=== PATIENT | female | born 1930 | race Caucasian/White ===

== ENCOUNTER 2016-12-25 12:00 | Emergency (ER) | payer OTHER, BC ==
[2016-12-25 12:17] VITALS: BP 134/65; PULSE 104; TEMP 99; BMI 20.3
[2016-12-25] MEDS ORDERED: traMADol HCL 50 MG TABLET PO ONE (12:48)
--- NOTE | 2016-12-25 12:50 | PDOC ---
History of Present Illness - General Chief Complaint: Pain Stated Complaint: LT THIGH PAIN Time Seen by Provider: 12/25/16 12:31 History Source: Patient, Family - History of Present Illness Occurred: reports: other Severity: reports: severe Pain Location: reports: lower extremity Past History - Past Medical History Allergies/Adverse Reactions: Allergies Allergy/AdvReac Type Severity Reaction Status Date / Time bee pollen Allergy Unknown Verified 12/25/16 12:13 POLLEN Allergy Unknown Uncoded 12/25/16 12:13 Home Medications: Ambulatory Orders Micardis Hct 40-12.5 mg Tablet 40 mg PO DAILY 01/05/14 Cephalexin [Keflex] 500 mg PO BID #13 capsule 12/25/16 Tramadol HCl 50 mg PO Q6H #20 tablet MDD 200 mg 12/25/16 HTN: Yes Other medical history: OSTEOPOROSIS, CELIAC DISEASE - Surgical History Abdominal Surgery: Yes (COLECTOMY W.REVERSAL) Appendectomy: Yes - Psycho/Social/Smoking Cessation Hx Suicidal Ideation: No Smoking History: Never smoked Hx Alcohol Use: No Drug/Substance Use Hx: No Substance Use Type: None Hx Substance Use Treatment: No Review of Systems - Review of Systems Constitutional: No: Chills, Fever ABD/GI: No: Nausea, Vomiting, Abdominal cramping : Yes: Dysuria, Frequency. No: Flank Pain, Hematuria *Physical Exam - Vital Signs Last Vital Signs Temp Pulse Resp BP Pulse Ox 99 F 104 H 19 134/65 97 12/25/16 12:13 12/25/16 12:13 12/25/16 12:13 12/25/16 12:13 12/25/16 12:13 - Physical Exam General Appearance: Yes: Appropriately Dressed. No: Apparent Distress HEENT: positive: Normal Voice Neck: positive: Supple Respiratory/Chest: negative: Respiratory Distress Gastrointestinal/Abdominal: positive: Soft. negative: Tender Musculoskeletal: positive: Normal Inspection. negative: Vertebral Tenderness Extremity: positive: Normal Inspection Integumentary: positive: Dry, Warm. negative: Rash Neurologic: positive: Fully Oriented, Alert, Normal Mood/Affect ED Treatment Course - RADIOLOGY Radiology Studies Ordered: Category Date Time Status HIP & PELVIS-LEFT [RAD] Stat Radiology 12/25/16 12:48 Ordered Medical Decision Making - Medical Decision Making 12/25/16 12:50 86 yo F, history of celiac disease, osteoporosis, on meds, hypertension, here with left groin pain. pain. Patient reports that she developed a mild ache to left groin area 4 days ago. States she ignored it and thought it would go away but pain has gotten worse and now finds it very difficult to bear weight on the left side. States prior to pain, she was more active in preparing for the December 23 holiday but denies any trauma/fall. No back pain. Taking aleve w/ no improvement. Patient also reporting some burning with urination and urinary frequency x several days. No hematuria, nausea, vomiting, fever or chills. See exam Atraumatic L groin pain Pain located to proximal aspect of medial L thigh on exam, worse w/ movement/ bearing weight in ED H/o osteoporosis -XR -pain control Dysuria No flank pain, f/c/n/v -ua/ucx 12/25/16 12:59 12/25/16 13:37 XR neg for acute pathology. Pt reports that pain is better but still hurts to walk. Further pain control and/or OBs overnight offered to pt who declines at this time. Prefers to do trial of pain control and rest at home and will return for persistent/worsening pain per pt. Cane given. Also has walker at home. +uti , ucx sent. Will tx, no prior sensitivities on file. Pt has upcoming appt w/ PMD. Stable for discharge in care of son at this time 12/25/16 13:43 12/25/16 13:49 12/25/16 13:51 *DC/Admit/Observation/Transfer Diagnosis at time of Disposition: Left groin pain UTI (urinary tract infection) Qualifiers: Urinary tract infection type: acute cystitis Hematuria presence: without hematuria Qualified Code(s): N30.00 - Acute cystitis without hematuria - Discharge Dispostion Disposition: HOME Condition at time of disposition: Improved - Prescriptions Prescriptions: Cephalexin [Keflex] 500 mg PO BID #13 capsule Tramadol HCl 50 mg PO Q6H #20 tablet MDD 200 mg - Referrals Referrals: Leslie Be MD [Primary Care Provider] - - Patient Instructions Printed Discharge Instructions: Urinary Tract Infection, DI for Groin Strain Additional Instructions: Take medications as directed and return for persistent or worsening of symptoms Otherwise, follow up with your PMD
[2016-12-25] MEDS ORDERED: traMADol HCL 50 MG TABLET ONE (12:54)
[2016-12-25 13:22] LABS: PH,URINE 6.5 (5.0-8.0); URINE APPEARANCE CLEAR; URINE BILIRUBIN NEGATIVE (NEGATIVE); URINE COLOR LT. YELLOW; URINE GLUCOSE (UA) NEGATIVE (NEGATIVE); URINE KETONE 1+ (NEGATIVE); URINE PROTEIN TRACE (NEGATIVE); URINE UROBILINOGEN 0.2 E.U/dl E.U./dl (0.2-1.0)
[2016-12-25 13:26] LABS: URINE BLOOD 2+ (NEGATIVE)
[2016-12-25 13:27] LABS: URINE LEUK ESTERASE 2+ (NEGATIVE); URINE NITRITE POSITIVE (NEGATIVE)
[2016-12-25] MEDS ORDERED: CEPHALEXIN MONOHYDRATE 500 MG CAPSULE (UD) PO ONE (13:31)
[2016-12-25] MEDS ORDERED: CEPHALEXIN MONOHYDRATE 500 MG CAPSULE (UD) ONE (13:33)
[2016-12-25 14:15] LABS: URINE BACTERIA RARE /hpf (NONE SEEN); URINE MUCUS FEW; URINE RBC 2 /hpf (0-3); URINE WBC 101 /hpf (3-5)
== END 2016-12-25 14:03 | disposition home or self-care (01) ==
LOC: JERFT 12:00
DX: N30.00 Acute cystitis without hematuria (principal); I10 Essential (primary) hypertension; M81.0 Age-related osteoporosis without current pathological fracture; Z87.19 Personal history of other diseases of the digestive system
CPT/HCPCS: 73523-TC; 81003; 81015; 87086; 87186; 99281-25

== ENCOUNTER 2019-02-15 11:19 | Inpatient (IN) | payer OTHER, BC ==
--- NOTE | 2019-02-15 11:51 | PDOC ---
History of Present Illness - General Chief Complaint: Injury Stated Complaint: FALL Time Seen by Provider: 02/15/19 11:31 - History of Present Illness Initial Comments: 02/15/19 12:04 88 year old woman with history of HTN, osteoporosis, remote colon ca s/p resection, colostomy and reversal who presents after mechanical fall while in a grocery store parking lot. The patient was walking and did not recognize the speed bump and fell onto her L side. She complains of L elbow pain and L sided rib pain. She denies chest pain or shortness of breath. She denies any head trauma, loc. She does not take anticoagulants. She was able to ambulate after the fall with assistance. She denies any other complaints. PCP: [place] JACKSON GENERAL/CONSTITUTIONAL: No fever or chills. No weakness. HEAD, EYES, EARS, NOSE AND THROAT: No change in vision. No ear pain or discharge. No sore throat. CARDIOVASCULAR: No chest pain or shortness of breath RESPIRATORY: No cough, wheezing, or hemoptysis. GASTROINTESTINAL: No nausea, vomiting, diarrhea or constipation. GENITOURINARY: No dysuria, frequency, or change in urination. MUSCULOSKELETAL: See HPI SKIN: No rash NEUROLOGIC: No headache, vertigo, loss of consciousness, or change in strength/ sensation. PE GENERAL: Awake, alert, and fully oriented, in no acute distress HEAD: No signs of trauma, normocephalic, atraumatic EYES: EOMI, sclera anicteric, conjunctiva clear ENT: oropharynx clear without exudates. Moist mucosa NECK: Normal ROM, supple LUNGS: No distress, speaks full sentences, clear to auscultation bilaterally HEART: Regular rate and rhythm, normal S1 and S2, no murmurs, rubs or gallops, peripheral pulses normal and equal bilaterally. CHEST: rib tenderness on L side ABDOMEN: Soft, nontender, normoactive bowel sounds. No guarding, no rebound. No masses EXTREMITIES : + L elbow with hematoma, flexion limited 2/2 swelling and pain, FROM of L shoulder NEUROLOGICAL: Cranial nerves II through XII grossly intact. Normal speech, normal gait, no focal sensorimotor deficits SKIN: Warm, Dry, normal turgor, no rashes or lesions noted MDM DDX including but not limited to: r/o elbow, arm, hip fx, r/o intracranial bleed vs cervical spine fx W/U: - XR of L arm, pelvis, chest, Head CT, cervical CT TX: - tylenol ED Course: XR: L acute pubic rami fx, L olecranon fx Orthopedics Dr. Garcia contacted, rec posterior splint and admission Plan for admission Yana Resendez, PGY2 Emergency Medicine Past History - Past Medical History Allergies/Adverse Reactions: Allergies Allergy/AdvReac Type Severity Reaction Status Date / Time bee pollen Allergy Unknown Verified 02/15/19 11:29 POLLEN Allergy Unknown Uncoded 02/15/19 11:29 Home Medications: Ambulatory Orders Micardis Hct 40-12.5 mg Tablet 40 mg PO DAILY 01/05/14 Cephalexin [Keflex] 500 mg PO BID #13 capsule 12/25/16 Tramadol HCl 50 mg PO Q6H #20 tablet MDD 200 mg 12/25/16 COPD: No HTN: Yes Other medical history: osteoporosis - Surgical History Abdominal Surgery: Yes (COLECTOMY W.REVERSAL) Appendectomy: Yes - Suicide/Smoking/Psychosocial Hx Smoking History: Never smoked Hx Alcohol Use: No Drug/Substance Use Hx: No Substance Use Type: None Hx Substance Use Treatment: No *Physical Exam - Vital Signs Last Vital Signs Temp Pulse Resp BP Pulse Ox 98.6 F 98 H 18 173/82 H 98 02/15/19 11:29 02/15/19 11:29 02/15/19 11:29 02/15/19 11:29 02/15/19 11:29 *DC/Admit/Observation/Transfer Diagnosis at time of Disposition: Pubic ramus fracture, Olecranon fracture - Discharge Dispostion Condition at time of disposition: Stable Decision to Admit order: Yes - Referrals Referrals: Leslie Be MD [Primary Care Provider] - - Patient Instructions - Post Discharge Activity
[2019-02-15] MEDS ORDERED: ACETAMINOPHEN 325 MG TABLET (FP) PO ONE (11:57)
[2019-02-15] MEDS ORDERED: ACETAMINOPHEN 325 MG TABLET (FP) ONE (12:12)
--- NOTE | 2019-02-15 12:18 | PDOC ---
*Physical Exam - Vital Signs Last Vital Signs Temp Pulse Resp BP Pulse Ox 98.6 F 98 H 18 173/82 H 98 02/15/19 11:29 02/15/19 11:29 02/15/19 11:29 02/15/19 11:29 02/15/19 11:29 ED Treatment Course - LABORATORY CBC & Chemistry Diagram: 02/15/19 16:50 02/15/19 16:50 Medical Decision Making - Medical Decision Making 02/15/19 12:12 88 year female with a PMH of HTN and -- presents to our ED s/p mechanical fall. States she was walking and tripped over a speed bump, denies any pre-fall chest pain, shortness of breath, lightheadedness, palpitaitons. No head trauma or LOC. Patient c/o L elbow pain, L thigh pain and L rib pain. Focused trauma PE Will obtain Pelvis XR, LUE XR, CT Head/C-spine *DC/Admit/Observation/Transfer Diagnosis at time of Disposition: Pubic ramus fracture, Olecranon fracture - Discharge Dispostion Condition at time of disposition: Stable - Referrals - Patient Instructions - Post Discharge Activity
--- NOTE | 2019-02-15 13:20 | PDOC ---
Documentation entered by Ariel Ellis SCRIBE, acting as scribe for Shereen Gonzalez MD. Shereen Gonzalez MD: This documentation has been prepared by the Caleb shah Renju, SCRIBE, under my direction and personally reviewed by me in its entirety. I confirm that the documentation accurately reflects all work, treatment, procedures, and medical decision making performed by me. Attending Attestation - Resident Resident Name: Yana Resendez - ED Attending Attestation I have performed the following: I have examined & evaluated the patient, The case was reviewed & discussed with the resident, I agree w/resident's findings & plan, Exceptions are as noted - HPI HPI: 02/15/19 12:39 The patient is an 88 year old woman with a past medical history of HTN, osteoporosis, remote colon ca s/p resection, colostomy and reversal who presents to the emergency department for evaluation of left rib, left elbow, and left leg pain s/p mechanical fall in grocery store parking lot. Patient reports moderate left elbow pain, left inner leg pain, and left rib pain exacerbated with inspiration. She states she did not see a speed bump while walking and subsequently fell on her left side. Patient notes she was able to ambulate after the fall with assistance. Denies loss of conscious. Denies use of anticoagulants. Denies any other complaints. Denies chest pain, abdominal pain, shortness of breath, and dizziness. PCP: Dr. Be - Physicial Exam PE: 02/15/19 12:39 GENERAL: The patient is in no acute distress. HEAD: Normal with no signs of trauma. EYES: PERRLA, EOMI, sclera anicteric, conjunctiva clear. ENT: Ears normal, nares patent, oropharynx clear without exudates. Moist mucous membranes. NECK: Normal range of motion, supple without lymphadenopathy, JVD, or masses. LUNGS: Breath sounds equal, clear to auscultation bilaterally. No wheezes, and no crackles. HEART:Regular rate and rhythm, normal S1 and S2 without murmur, rub or gallop. ABDOMEN: Soft, nontender. No guarding, no rebound. No masses palpable. EXTREMITIES: (+)Large L elbow hematoma, no laceration. Normal range of motion, no edema. No clubbing or cyanosis. No erythema, or tenderness. NEUROLOGICAL: Cranial nerves II through XII grossly intact. Normal speech. No focal neurological deficits. MUSCULOSKELETAL: (+)L Rib Tenderness. (+)Able to flex left hip, ROM limited by pain. Back non-tender to palpation, no CVA tenderness SKIN: Warm, Dry, normal turgor, no rashes or lesions noted. - Medical Decision Making 02/15/19 13:18 88 yo F presenting with a complaint of left side pain s/p mechanical fall in the parking lot No LOC, no Amnesia Left elbow swelling Left groin pain, no left hip pain Will do: CT head and C spine Xray left elbow Xray Hip Tylenol Re Assess 02/16/19 07:53 Xrays: Olecranon fracture Pubic ramus fracture Pt lives alone May not be safe discharge Pt son concerned about her going home Will place on Dr Mart's service Ortho/PT consult Clinical impression: Mechanical fall, initial presentation Olecranon fracture, initial presentation Pubic ramus fracture, initial presentation
[2019-02-15 17:24] LABS: BASO % 0.2 % (0-2.0); HEMATOCRIT 35.2 % (32.4-45.2); LYMPH % 6.8 % (8-40); MCH 31.9 pg (25.7-33.7); MCHC 34.2 g/dl (32.0-36.0); MEAN CELL VOLUME 93.2 fl (80-96); MEAN PLT VOLUME 8.3 fl (7.5-11.1); MONO % 6.3 % (3.8-10.2); NEUT % 86.7 % (42.8-82.8); PLATELET COUNT 215 K/MM3 (134-434); RBC 3.78 M/mm3 (3.60-5.2); RDW 12.9 % (11.6-15.6); WHITE BLOOD COUNT 13.2 K/mm3 (4.0-10.0)
[2019-02-15 17:38] LABS: INR 1.06 (0.83-1.09); PROTHROMBIN TIME (PATIENT) 12.5 SEC (9.7-13.0)
[2019-02-15 17:40] LABS: ACTIVATED PTT 28.4 SECONDS (25.2-36.5)
[2019-02-15 17:44] LABS: ALBUMIN 4.3 g/dl (3.4-5.0); BILIRUBIN,TOTAL 0.7 mg/dL (0.2-1); BLOOD UREA NITROGEN 7.2 mg/dL (7-18); CALCIUM 9.3 mg/dL (8.5-10.1); CREATININE 0.6 mg/dL (0.55-1.3); POTASSIUM 3.9 mmol/L (3.5-5.1); TOT PROT 6.8 g/dl (6.4-8.2)
--- NOTE | 2019-02-15 17:57 | HP ---
Admitting History and Physical - Primary Care Physician PCP: Leslie Be - Admission Chief Complaint: fell in parking lot, tripped over speed bump History of Present Illness: 88 year old woman with history of HTN, osteoporosis, remote colon ca s/p resection, colostomy and reversal who presents after mechanical fall while in a grocery store parking lot. The patient was walking and did not recognize the speed bump and fell onto her L side. She complains of L elbow pain and L sided rib pain. She denies chest pain or shortness of breath. She denies any head trauma, loc. She does not take anticoagulants. She was able to ambulate after the fall with assistance. She denies any other complaints. History Source: Patient Limitations to Obtaining History: No Limitations - Past Medical History Cardiovascular: Yes: HTN Gastrointestinal: Yes: Other (colon ca s/p colon resection) - Smoking History Smoking history: Never smoked - Alcohol/Substance Use Hx Alcohol Use: No Home Medications - Allergies Allergies/Adverse Reactions: Allergies Allergy/AdvReac Type Severity Reaction Status Date / Time bee pollen Allergy Unknown Verified 02/15/19 11:29 POLLEN Allergy Unknown Uncoded 02/15/19 11:29 - Home Medications Home Medications: Ambulatory Orders Micardis Hct 40-12.5 mg Tablet 40 mg PO DAILY 01/05/14 Cephalexin [Keflex] 500 mg PO BID #13 capsule 12/25/16 Tramadol HCl 50 mg PO Q6H #20 tablet MDD 200 mg 12/25/16 Review of Systems - Review of Systems Constitutional: reports: No Symptoms Eyes: reports: No Symptoms HENT: reports: No Symptoms Neck: reports: No Symptoms Cardiovascular: reports: No Symptoms Respiratory: reports: No Symptoms Gastrointestinal: reports: No Symptoms Genitourinary: reports: No Symptoms Breasts: reports: No Symptoms Reported Musculoskeletal: reports: Joint Pain (+ L elbow), Joint Swelling, Other (left groin pain) Integumentary: reports: Bruising (left elbow heamtoma) Neurological: reports: No Symptoms Endocrine: reports: No Symptoms Hematology/Lymphatic: reports: No Symptoms Psychiatric: reports: No Symptoms Physical Examination Vital Signs: Vital Signs Temperature 98.6 F 02/15/19 11:29 Pulse Rate 98 H 02/15/19 17:52 Respiratory Rate 18 02/15/19 17:52 Blood Pressure 145/67 02/15/19 17:52 O2 Sat by Pulse Oximetry (%) 97 02/15/19 17:52 Constitutional: Yes: Well Nourished, No Distress, Calm Eyes: Yes: WNL, Conjunctiva Clear, EOM Intact HENT: Yes: WNL, Atraumatic, Normocephalic, Rhinnorhea Neck: Yes: WNL, Supple Cardiovascular: Yes: WNL, Regular Rate and Rhythm Respiratory: Yes: WNL, Regular, CTA Bilaterally, Other (left rib bruising, tender) Gastrointestinal: Yes: WNL, Normal Bowel Sounds, Soft ...Rectal Exam: Yes: Deferred Breast(s): Yes: WNL Musculoskeletal: Yes: Joint Swelling (left elbow) Extremities: Yes: Deformity (left elbow), Other (+ L elbow with hematoma, flexion limited 2/2 swelling and pain, FROM of L shoulder, left groin pain) Peripheral Pulses WNL: Yes Integumentary: Yes: Bruising (hematome to left elbow) Neurological: Yes: WNL, Alert, Oriented ...Motor Strength: WNL, LUE (decreased secondary to pain) Psychiatric: Yes: WNL, Alert, Oriented Labs: CBC, BMP 02/15/19 16:50 02/15/19 16:50 Imaging - Results Other: Report Reviewed (L acute pubic rami fx, L olecranon fx), Other Problem List - Problems (1) HTN (hypertension) Assessment/Plan: on micardis at home continue with valsatram, hold hctz portion secondary to hyponatremia monitor bp Code(s): I10 - ESSENTIAL (PRIMARY) HYPERTENSION (2) Age related osteoporosis Code(s): M81.0 - AGE-RELATED OSTEOPOROSIS W/O CURRENT PATHOLOGICAL FRACTURE (3) Colon cancer Assessment/Plan: remote history of colon Ca Code(s): C18.9 - MALIGNANT NEOPLASM OF COLON, UNSPECIFIED (4) History of colon resection Assessment/Plan: Colon ca with colectomy in past Code(s): Z90.49 - ACQUIRED ABSENCE OF OTHER SPECIFIED PARTS OF DIGESTIVE TRACT (5) History of colostomy reversal Code(s): Z98.890 - OTHER SPECIFIED POSTPROCEDURAL STATES (6) Hyponatremia Assessment/Plan: sodium 130 on admissionhold hctz until Na >135 fluid restrcition of free water to 1000cc per 24hd send [facility] [employer], urine Cr, urine sodium to calculate FeNa possible SIADH secondary to trauma/pain Code(s): E87.1 - HYPO-OSMOLALITY AND HYPONATREMIA (7) Prophylactic measure Assessment/Plan: FEN no additional IVF needed regular diet monitor electrolytes DVT heparin 5000u bid Dispo admit to med surg full code discharge planning-pt lives alone and son is in an elevated building-will have SW see pt in morning to aid in discharge planning Code(s): Z29.9 - ENCOUNTER FOR PROPHYLACTIC MEASURES, UNSPECIFIED (8) Olecranon fracture Assessment/Plan: Dr Garcia to elavualte patient Left upper extrem place in sling support with pillows pain managment Code(s): S52.023A - DISP FX OF OLECRAN PRO W/O INTARTIC EXTN UNSP ULNA, INIT (9) Pubic ramus fracture Assessment/Plan[facility] until cleared for weight bearing pain managment Code(s): S32.599A - OTH FRACTURE OF UNSP PUBIS, INIT ENCNTR FOR CLOSED FRACTURE (10) Left groin pain Assessment/Plan: tylenol / tramadol for pain try to avoid narcotics given advanced age Code(s): R10.32 - LEFT LOWER QUADRANT PAIN (11) Fall Assessment/Plan: trauma series done, with above mention olecron and pubis rami fx C spine and Head CT with out acute pathology fall precautions PT requested Code(s): W19.XXXA - UNSPECIFIED FALL, INITIAL ENCOUNTER Visit type - Emergency Visit Emergency Visit: Yes ED Registration Date: 02/15/19 Care time: The patient presented to the Emergency Department on the above date and was hospitalized for further evaluation of their emergent condition. - New Patient This patient is new to me today: Yes Date on this admission: 02/15/19 - Critical Care Critical Care patient: No
[2019-02-15] MEDS ORDERED: traMADol HCL 50 MG TABLET PO PRN (19:08)
[2019-02-15] MEDS: HEPARIN NA (PORCINE) 5,000 UNITS/ML 1ML VIAL SQ SCH (21:38)
[2019-02-15] MEDS ORDERED: ACETAMINOPHEN 325 MG TABLET (FP) PO PRN (22:05)
[2019-02-16 08:23] LABS: BASO % 0.1 % (0-2.0); EOS % 0.1 % (0-4.5); HEMOGLOBIN 11.9 GM/dL (10.7-15.3); LYMPH % 13.1 % (8-40); MCH 31.8 pg (25.7-33.7); MCHC 33.9 g/dl (32.0-36.0); MEAN CELL VOLUME 93.9 fl (80-96); MEAN PLT VOLUME 8.6 fl (7.5-11.1); NEUT % 77.7 % (42.8-82.8); PLATELET COUNT 214 K/MM3 (134-434); RBC 3.73 M/mm3 (3.60-5.2); RDW 13.2 % (11.6-15.6)
[2019-02-16] MEDS ORDERED: SODIUM CHLORIDE 1,000 ML IV SCH ×3 (08:30→21:58)
[2019-02-16 08:34] LABS: INR 1.06 (0.83-1.09); PROTHROMBIN TIME (PATIENT) 12.5 SEC (9.7-13.0)
[2019-02-16] MEDS ORDERED: ACETAMINOPHEN 1000 MG/100 ML VIAL (NON FORMULARY) IVPB PRN ×2 (08:39→17:30)
--- NOTE | 2019-02-16 08:39 | PN ---
Progress Note, Physician Chief Complaint: EVENTS AND NOTES REVIEWED AWAKE ALERT NO DISTRESS REVIEWED XRAYS - Current Medication List Current Medications: Active Medications Acetaminophen (Tylenol -) 650 mg PO Q6H PRN PRN Reason: Fever Or Pain Heparin Sodium (Porcine) (Heparin -) 5,000 unit SQ BID [facility] Last Admin: 02/15/19 21:38 Dose: 5,000 unit Sodium Chloride (Normal Saline -) 1,000 mls @ 83 mls/hr IV ASDIR [facility] Tramadol HCl (Ultram -) 50 mg PO Q6H PRN PRN Reason: PAIN LEVEL 6-10 Valsartan (Diovan -) 160 mg PO DAILY [facility] - Objective Vital Signs: Vital Signs Temperature 97.9 F 02/16/19 06:00 Pulse Rate 93 H 02/16/19 06:00 Respiratory Rate 20 02/16/19 06:00 Blood Pressure 143/74 02/16/19 06:00 O2 Sat by Pulse Oximetry (%) 97 02/15/19 17:52 Constitutional: Yes: No Distress HENT: Yes: WNL Neck: Yes: WNL Cardiovascular: Yes: Regular Rate and Rhythm Respiratory: Yes: WNL Gastrointestinal: Yes: WNL Genitourinary: Yes: Incontinence Musculoskeletal: Yes: Muscle Pain, Muscle Weakness Edema: No Peripheral Pulses WNL: Yes Integumentary: Yes: WNL Wound/Incision: Yes: Dressing Dry and Intact Neurological: Yes: WNL ...Motor Strength: LUE, LLE Psychiatric: Yes: WNL Labs: INR, PTT INR 1.06 (0.83-1.09) 02/16/19 07:28 Problem List - Problems (1) Adult idiopathic generalized osteoporosis Code(s): M81.8 - OTHER OSTEOPOROSIS WITHOUT CURRENT PATHOLOGICAL FRACTURE (2) Fall Code(s): W19.XXXA - UNSPECIFIED FALL, INITIAL ENCOUNTER (3) HTN (hypertension) Code(s): I10 - ESSENTIAL (PRIMARY) HYPERTENSION (4) History of colon resection Code(s): Z90.49 - ACQUIRED ABSENCE OF OTHER SPECIFIED PARTS OF DIGESTIVE TRACT (5) History of colostomy reversal Code(s): Z98.890 - OTHER SPECIFIED POSTPROCEDURAL STATES (6) Hyponatremia Code(s): E87.1 - HYPO-OSMOLALITY AND HYPONATREMIA (7) Olecranon fracture Code(s): S52.023A - DISP FX OF OLECRAN PRO W/O INTARTIC EXTN UNSP ULNA, INIT (8) Pubic ramus fracture Code(s): S32.599A - OTH FRACTURE OF UNSP PUBIS, INIT ENCNTR FOR CLOSED FRACTURE (9) UTI (urinary tract infection) Code(s): N39.0 - URINARY TRACT INFECTION, SITE NOT SPECIFIED Qualifiers: Urinary tract infection type: acute cystitis Hematuria presence: without hematuria Qualified Code(s): N30.00 - Acute cystitis without hematuria Assessment/Plan DISCUSSED WITH DR MONTES PATIENT NPO IV NORMAL SALINE FOR HYPONATREMIA URINE C AND S POSSIBLE SX TODAY D/W PATIENT IN AGREEMENT AND TRANSFER TO [facility] FOR REHAB/SNF
[2019-02-16 08:59] LABS: ALBUMIN 4.3 g/dl (3.4-5.0); BLOOD UREA NITROGEN 6.8 mg/dL (7-18); CALCIUM 9.2 mg/dL (8.5-10.1); CREATININE 0.7 mg/dL (0.55-1.3); MAGNESIUM 2.1 mg/dL (1.8-2.4); POTASSIUM 4.2 mmol/L (3.5-5.1); TOT PROT 7.2 g/dl (6.4-8.2)
[2019-02-16] MEDS: HEPARIN NA (PORCINE) 5,000 UNITS/ML 1ML VIAL SQ SCH (09:41)
[2019-02-16] MEDS ORDERED: HYDROCHLOROTHIAZIDE 12.5 MG CAPSULE (FP) PO SCH (10:00)
[2019-02-16] MEDS ORDERED: FAMOTIDINE 20 MG/50 ML IVPB 20 MG/50 ML MG IVPB SCH (10:00)
[2019-02-16] MEDS ORDERED: VALSARTAN 160 MG TABLET (UD) PO SCH (10:00)
[2019-02-16] MEDS ORDERED: MICARDIS HCT PO SCH (10:00)
--- NOTE | 2019-02-16 10:55 | EKG ---
Test Reason : Blood Pressure : / mmHG Vent. Rate : 099 BPM Atrial Rate : 099 BPM P-R Int : 138 ms QRS Dur : 062 ms QT Int : 350 ms P-R-T Axes : 047 -22 006 degrees QTc Int : 449 ms POOR DATA QUALITY, INTERPRETATION MAY BE ADVERSELY AFFECTED SINUS RHYTHM WITH PREMATURE ATRIAL COMPLEXES MINIMAL VOLTAGE CRITERIA FOR LVH, MAY BE NORMAL VARIANT BORDERLINE ECG NO PREVIOUS ECGS AVAILABLE Confirmed by MICHELLE DAMICO, KESHAWN ([id number]) on 02/16/2019 10:54:22 AM Referred By: Confirmed By:KESHAWN MARTINEZ MD
--- NOTE | 2019-02-16 12:01 | CON.PULM ---
Consult Consult Specialty:: PULMONARY Referred by:: Dr Be Reason for Consultation:: preop clearance - History of Present Illness Chief Complaint: fall History of Present Illness: 88yo female with h/o HTN, osteoporosis, colon ca s/p resection/colostomy/ reversal who was admitted s/p fall. Found to have a pubic ramus fracture being evaluated by surgery. She denies any shortness of breath or chest pain. No cough or wheezing. No history of asthma or COPD. She is a never smoker. She lives alone, can walk up flighty of stairs without dyspnea or difficulty. Denies any prior complications to anesthesia. - History Source History Provided By: Patient, Medical Record Limitations to Obtaining History: No Limitations - Past Medical History Cardio/Vascular: Yes: HTN Gastrointestinal: Yes: Other (colon ca s/p colon resection) - Alcohol/Substance Use Hx Alcohol Use: No - Smoking History Smoking history: Never smoked Home Medications - Allergies Allergies/Adverse Reactions: Allergies Allergy/AdvReac Type Severity Reaction Status Date / Time bee pollen Allergy Unknown Verified 02/15/19 11:29 POLLEN Allergy Unknown Uncoded 02/15/19 11:29 - Home Medications Home Medications: Ambulatory Orders Micardis Hct 40-12.5 mg Tablet 40 mg PO DAILY 01/05/14 Cephalexin [Keflex] 500 mg PO BID #13 capsule 12/25/16 Tramadol HCl 50 mg PO Q6H #20 tablet MDD 200 mg 12/25/16 Review of Systems - Review of Systems Constitutional: denies: Chills, Fever Eyes: denies: Recent Change in Vision HENT: denies: Nasal Congestion, Throat Pain Neck: denies: Stiffness, Tenderness Cardiovascular: denies: Chest Pain, Shortness of Breath Respiratory: denies: Cough, Hemoptysis, Wheezing Gastrointestinal: denies: Abdominal Pain, Nausea, Vomiting Genitourinary: denies: Dysuria, Hematuria Musculoskeletal: reports: Extremity Pain Neurological: denies: Dizziness, Headache Endocrine: denies: Unexplained Weight Loss Physical Exam Vital Sings: Vital Signs Temperature 98 F 02/16/19 10:00 Pulse Rate 105 H 02/16/19 10:00 Respiratory Rate 18 02/16/19 10:00 Blood Pressure 153/70 02/16/19 10:00 O2 Sat by Pulse Oximetry (%) 97 02/15/19 17:52 Constitutional: Yes: Calm Eyes: Yes: Conjunctiva Clear, EOM Intact HENT: Yes: Atraumatic, Normocephalic Neck: Yes: Supple, Trachea Midline Cardiovascular: Yes: Regular Rate and Rhythm Respiratory: Yes: Diminished (decreased breath sounds at the bases) ...Clubbing: No Gastrointestinal: Yes: Normal Bowel Sounds, Soft. No: Tenderness Edema: No Neurological: Yes: Alert, Oriented Labs: CBC, BMP 02/16/19 07:28 02/16/19 07:28 Assessment/Plan s/p Fall Pubic Ramus Fracture L Olecranon Fracture HTN - pain control - surgery eval - incentive spirometry - pt without pulmonary symptoms, no history of lung disease, has unlimited exercise tolerance,no pulmonary contraindications for surgery if planned - DVT prophylaxis
--- NOTE | 2019-02-16 12:04 | PN ---
Progress Note (short form) - Note Progress Note: Pt seen and examined. She is an 88 year old right hand dominant female patient 1 day s/p fall onto her left side. She c/o pain in her left elbow, and left hemipelvis with motion. The LUE is in an long arm posterior splint. PE LUE grossly NVI, in post splint. + mild swelling. No obvious open aspect. LLE nl length and rotation. + pain with logrolling or axial load in the left hemipelvis area. + pain with direct pressure to the left hemipelvis. RLE nl length and rotation. No pain whatsoever in the right hip or hemipelvis with direct pressure, or axial load, or log rolling the RLE. No pain in the right hip with a right straight leg raise, even with resistance. Strength of right hip flexors 5/5 with no pain. X-rays Of the left elbow show a completely displaced, widened intra articular olecranon fracture. Of the pelvis show an acute, minimally displaced left superior pubic ramus fracture, possible left inferior pubic ramus fracture. The right hip does not look normal. There is the subtle suggestion of a greater trochanter fracture, could be an old injury. Imp 88 yo Right hand dom Female pt with an acute, displaced left olecranon fracture. X-rays are suggestive of a right hip injury, however clinically she is completely asymptomatic. Rec Surgery for the left elbow, today if medically cleared. I spoke with PMD, Dr Be. All questions and concerns addressed for the pt. NPO CT scan right hip and hemipelvis, to rule out an occult right hip fracture
--- NOTE | 2019-02-16 13:27 | CONSULT ---
Consult Consult Specialty:: Nephrology Reason for Consultation:: hyponatremia - History of Present Illness Chief Complaint: s/p fall History of Present Illness: Pt is an 88 year old female with pmhx of htn, colon cancer s/p resection and osteoporosis who presents to the ER after a fall. She was found to have a fracture and is going to the OR for repair. She says that the fall was mechanical. She denies dizziness or loss of balance. She was found to be hyponatremic and I was called to evaluate her. She is on an arb at home however it is not clear if she is on a thiazide. She denies excess water intake. She denies recent weight loss. - History Source History Provided By: Patient, Medical Record - Past Medical History Cardio/Vascular: Yes: HTN Gastrointestinal: Yes: Other (colon ca s/p colon resection) - Past Surgical History Past Surgical History: Yes: Colostomy - Alcohol/Substance Use Hx Alcohol Use: No - Smoking History Smoking history: Never smoked Home Medications - Allergies Allergies/Adverse Reactions: Allergies Allergy/AdvReac Type Severity Reaction Status Date / Time bee pollen Allergy Unknown Verified 02/15/19 11:29 POLLEN Allergy Unknown Uncoded 02/15/19 11:29 - Home Medications Home Medications: Ambulatory Orders Micardis Hct 40-12.5 mg Tablet 40 mg PO DAILY 01/05/14 Cephalexin [Keflex] 500 mg PO BID #13 capsule 12/25/16 Tramadol HCl 50 mg PO Q6H #20 tablet MDD 200 mg 12/25/16 Family Disease History - Family Disease History Family History: Denies Review of Systems - Review of Systems Constitutional: reports: Malaise Eyes: reports: No Symptoms HENT: reports: No Symptoms Neck: reports: No Symptoms Cardiovascular: reports: No Symptoms Respiratory: reports: No Symptoms Gastrointestinal: reports: No Symptoms Genitourinary: reports: No Symptoms Musculoskeletal: reports: Other (hip and arm pain) Endocrine: reports: No Symptoms Hematology/Lymphatic: reports: No Symptoms Psychiatric: reports: No Symptoms Physical Exam Vital Signs: Vital Signs Temperature 98 F 02/16/19 10:00 Pulse Rate 105 H 02/16/19 10:00 Respiratory Rate 18 02/16/19 10:00 Blood Pressure 153/70 02/16/19 10:00 O2 Sat by Pulse Oximetry (%) 97 02/15/19 17:52 Constitutional: Yes: Calm Eyes: Yes: Conjunctiva Clear HENT: Yes: Atraumatic Neck: Yes: Supple Cardiovascular: Yes: S1, S2 Respiratory: Yes: CTA Bilaterally Gastrointestinal: Yes: Soft Renal/: Yes: WNL Musculoskeletal: Yes: Other (arm pian and hip pain) Edema: No Neurological: Yes: Oriented Psychiatric: Yes: Oriented Labs: CBC, BMP 02/16/19 07:28 02/16/19 07:28 Laboratory Tests 02/15/19 02/15/19 02/16/19 16:50 16:50 07:28 WBC 13.2 H 7.0 Sodium 130 L Urine Osmolality Ur Random Sodium 02/16/19 02/16/19 02/16/19 07:28 09:35 09:35 WBC Sodium 125 L Urine Osmolality 348 Ur Random Sodium 40 Imaging - Results Chest X-ray: Report Reviewed Problem List - Problems (1) Adult idiopathic generalized osteoporosis Code(s): M81.8 - OTHER OSTEOPOROSIS WITHOUT CURRENT PATHOLOGICAL FRACTURE (2) Colon cancer Code(s): C18.9 - MALIGNANT NEOPLASM OF COLON, UNSPECIFIED (3) Fall Code(s): W19.XXXA - UNSPECIFIED FALL, INITIAL ENCOUNTER (4) HTN (hypertension) Code(s): I10 - ESSENTIAL (PRIMARY) HYPERTENSION (5) Hyponatremia Code(s): E87.1 - HYPO-OSMOLALITY AND HYPONATREMIA Assessment/Plan Current Medications Generic Name Dose Route Start Last Admin Trade Name Freq PRN Reason Stop Dose Admin Acetaminophen 650 mg 02/15/19 22:05 Tylenol - PO Q6H PRN Fever Or Pain Acetaminophen 750 mg 02/16/19 08:39 Ofirmev Injection - IVPB Q6H PRN PAIN OR FEVER Heparin Sodium (Porcine) 5,000 unit 02/15/19 22:00 02/16/19 09:41 Heparin - SQ 5,000 unit BID STEFAN Administration Sodium Chloride 1,000 mls @ 83 mls/hr 02/16/19 08:30 02/16/19 12:22 Normal Saline - IV 83 mls/hr ASDIR STEFAN Administration Famotidine/Sodium Chloride 20 mg in 50 mls @ 100 mls/hr 02/16/19 10:00 12:22 Pepcid 20 Mg Premixed Ivpb - IVPB 100 mls/hr BID STEFAN Administration Tramadol HCl 50 mg 02/15/19 19:08 Ultram - PO Q6H PRN PAIN LEVEL 6-10 Valsartan 160 mg 02/16/19 10:00 02/16/19 09:41 Diovan - PO 160 mg DAILY STEFAN Administration Impression 1. Hyponatremia 2. s/p fall 3. htn 4. left olecranon fracture 5. hx of colon cancer Plan - urine osm appears elevated - repeat labs to evaluate response to saline - it is not clear if she was on a thiazide as the med list has it listed however she does not think that she is - clarify home meds - check tsh and cortisol - check plasma osm and repeat urine studies - ortho eval - will follow Dr Ornelas
[2019-02-16] MEDS ORDERED: BUPIVACAINE HCL/PF 0.5% (5 MG/ML) 30 ML VIAL IJ ONE (14:16)
[2019-02-16] MEDS ORDERED: MIDAZOLAM HCL 2 MG/2 ML SINGLE DOSE VIAL ONE ×2 (14:17)
[2019-02-16] MEDS ORDERED: PROPOFOL 20 ML ONE ×2 (14:48→14:59)
[2019-02-16] MEDS ORDERED: SUCCINYLCHOLINE CHLORIDE 200 MG/10 ML SYRINGE ONE (14:49)
[2019-02-16] MEDS ORDERED: ceFAZolin SODIUM 1 GM VIAL IVPB ONE (15:01)
[2019-02-16] MEDS ORDERED: ONDANSETRON 4 MG/2 ML VIAL IVPUSH PRN ×2 (15:17→17:30)
[2019-02-16] MEDS ORDERED: EPHEDRINE SULFATE/0.9% NACL/PF 50 MG/10 ML SYRINGE NR ONE (15:20)
--- NOTE | 2019-02-16 16:38 | OP ---
Operative Note - Note: Operative Date: 02/16/19 ([facility]) Pre-Operative Diagnosis: left olecranon fx Operation: left olecranon ORIF Post-Operative Diagnosis: Same as Pre-op Surgeon: Gerardo Reddy Raw Stock Machine Loader: Herman Lepe Anesthesiologist/MANAGER BUSINESS INFORMATION: Clive Da Silva Anesthesia: General, Local Estimated Blood Loss (mls): 5 (tourniquet) Operative Report Dictated: Yes
[2019-02-16] MEDS ORDERED: traMADol HCL 50 MG TABLET PO PRN (17:30)
[2019-02-16] MEDS ORDERED: ACETAMINOPHEN 325 MG TABLET (FP) PO PRN (17:30)
[2019-02-16 19:53] LABS: ANION GAP 9 MMOL/L (8-16); CALCIUM 8.1 mg/dL (8.5-10.1); CHLORIDE 93 mmol/L (98-107); CO2 25 mmol/L (21-32); CREATININE 0.5 mg/dL (0.55-1.3); GLUCOSE,RANDOM 149 mg/dL (74-106); SODIUM 127 mmol/L (136-145)
[2019-02-16] MEDS: FAMOTIDINE 20 MG/50 ML IVPB 20 MG/50 ML MG IVPB SCH (21:55)
[2019-02-16 22:23] LABS: OSMOLALITY,SERUM 264 mosm/kg (278-305)
--- NOTE | 2019-02-16 22:34 | OP ---
DATE OF OPERATION: DATE OF DICTATION: 02/16/2019 PREOPERATIVE DIAGNOSIS: Left olecranon fracture. POSTOPERATIVE DIAGNOSIS: Left olecranon fracture. PROCEDURE: Open reduction, internal fixation left olecranon with graft on bone graft. SURGEON: Veto Castro M.D. UPPER CUTTER: Annalee Ricks ANESTHESIOLOGIST: MEDICAL TRANSPORT SPECIALIST ANESTHESIA: Left interscalene block and LMA anesthesia. DRAINS: None. COMPLICATIONS: None. SPECIMENS: None. BLOOD LOSS: None. BLOOD GIVEN: None. FLUID REPLACEMENT: 700 mL Plasmalyte. INDICATION: This patient is an 88-year-old female with a displaced left olecranon fracture. After understanding the potential risks, complications, alternatives, benefits to surgery versus nonsurgical treatment, the patient elected to undergo this procedure. DESCRIPTION OF PROCEDURE; The patient was brought to the operating room, peripheral IV placed, IV sedation given, 1 g of IV Ancef was given. Left upper extremity was prepped and draped in sterile fashion. Elevated, exsanguinated with Esmarch bandage. Tourniquet inflated to 250 mmHg. Curvilinear incision was marked out over the posterior aspect of the left olecranon. Subcutaneous hemostasis was achieved with Bovie cautery, dissection done with Metzenbaum scissors down to the periosteum of the posterior aspect of the olecranon. hematoma was evacuated. There was torn extensor mechanism/periosteum over the fracture site. The fracture itself was irrigated, washed out and debrided with a curet. A small amount of muscle and hematoma debris was removed. Next we did a provisional reduction and overall looks like it was going to come together quite nicely. Using a 2.0 mm drill bit to drill the hole in the olecranon, used a large bone tenaculum to do reduction. X-rays were taken with a mini C-arm fluoroscopy in multiple planes, and they all looked quite good. Next I used the Fabricio cable pins 40 mm in length in standard fashion, but them through the olecranon into the ulna, they were roughly parallel and in the appropriate position in the AP and lateral planes. Overall looked quite good, I was able to get some compression. Next I drilled a transverse hole with a 2.0-mm drill bit, sent one of the wires through, decided to use a crimper, and used the security systems manager to set it in place. Next I put in 1 mL of Salty bone graft putty into the fracture site to expedite bone healing. Next I tightened down the wires completely and put on the crimper and crimped it in place. I cut the tails off, AP and lateral in multiple oblique planes were taken and looked quite good. There was excellent compression across the fracture site. Next I used 2 Fiberwire and did multiple, about 1 dozen, supplemental [id number] sutures both to the distal triceps, into the periosteum with an ulna across the fracture site, as well as the area of the torn extensor mechanism and periosteum of the original fracture site. The supplemental sutures gave the repair great additional strength. The area was copiously irrigated and washed out. Deep dermal layer closed with 2-0 Vicryl sutures. Final skin reapproximation was done with savanna. Area was then washed and dried and covered with Xeroform gauze, 4x4, Webril, and a posterior Orthoglass splint was applied, wrapped into a bandage. Total tourniquet time was about 50 minutes. There were no complications during the case. The patient tolerated the procedure quite well and was brought to the regular recovery room in stable condition. VETO CASTRO M.D. [id number]
[2019-02-17 07:13] LABS: HEMATOCRIT 32.5 % (32.4-45.2); HEMOGLOBIN 11.1 GM/dL (10.7-15.3); MCHC 34.3 g/dl (32.0-36.0); MEAN CELL VOLUME 93.4 fl (80-96); MEAN PLT VOLUME 8.2 fl (7.5-11.1); PLATELET COUNT 191 K/MM3 (134-434); RBC 3.48 M/mm3 (3.60-5.2); WHITE BLOOD COUNT 7.7 K/mm3 (4.0-10.0)
[2019-02-17 07:44] LABS: ALBUMIN 3.9 g/dl (3.4-5.0); BILIRUBIN,TOTAL 0.9 mg/dL (0.2-1); BLOOD UREA NITROGEN 6.1 mg/dL (7-18); CALCIUM 8.9 mg/dL (8.5-10.1); CREATININE 0.6 mg/dL (0.55-1.3); MAGNESIUM 2.2 mg/dL (1.8-2.4); POTASSIUM 4.6 mmol/L (3.5-5.1); TOT PROT 6.5 g/dl (6.4-8.2)
--- NOTE | 2019-02-17 08:35 | PN ---
Progress Note (short form) - Note Progress Note: Ortho Pt seen and examined s/p left olecranon orif pod #1, left pelvic fx Selected Entries 02/17/19 05:00 Temperature 98.1 F Pulse Rate 88 Respiratory 12 Rate Blood Pressure 136/63 Laboratory Tests 02/17/19 06:50 WBC 7.7 Hgb 11.1 Hct 32.5 Plt Count 191 splint intact, nvi a/p maintain splint NWB LUE PT for pelvic fx wbat LLE pain control d/c planning
[2019-02-17] MEDS: VALSARTAN 160 MG TABLET (UD) PO SCH (10:00)
[2019-02-17] MEDS: ASPIRIN 325 MG TABLET PO SCH (10:00)
[2019-02-17] MEDS: FAMOTIDINE 20 MG/50 ML IVPB 20 MG/50 ML MG IVPB SCH ×2 (10:01→21:19)
--- NOTE | 2019-02-17 11:00 | PN ---
Progress Note, Physician Chief Complaint: Olceranon Fracture Pelvic Fracture Fall History of Present Illness: Previous notes and events reviewed awake and alert OOB to chair L arm in sling pain is controlled but exacerbated with walking noted mostly in L rib - Current Medication List Current Medications: Active Medications Acetaminophen (Tylenol -) 650 mg PO Q6H PRN PRN Reason: Fever Or Pain Acetaminophen (Ofirmev Injection -) 750 mg IVPB Q6H PRN PRN Reason: PAIN OR FEVER Aspirin (Asa -) 325 mg PO DAILY [facility] Last Admin: 02/17/19 10:00 Dose: 325 mg Famotidine/Sodium Chloride (Pepcid 20 Mg Premixed Ivpb -) 20 mg in 50 mls @ 100 mls/hr IVPB BID [facility] Last Admin: 02/17/19 10:01 Dose: 100 mls/hr Sodium Chloride (Normal Saline -) 1,000 mls @ 40 mls/hr IV ASDIR [facility] Last Admin: 02/17/19 10:00 Dose: 40 mls/hr Ondansetron HCl (Zofran Injection) 4 mg IVPUSH Q6H PRN PRN Reason: NAUSEA AND/OR VOMITING Last Admin: 02/16/19 18:30 Dose: 4 mg Tramadol HCl (Ultram -) 50 mg PO Q6H PRN PRN Reason: PAIN LEVEL 6-10 Valsartan (Diovan -) 160 mg PO DAILY [facility] Last Admin: 02/17/19 10:00 Dose: 160 mg - Objective Vital Signs: Vital Signs Temperature 97.8 F 02/17/19 09:00 Pulse Rate 106 H 02/17/19 09:00 Respiratory Rate 15 02/17/19 09:00 Blood Pressure 126/60 02/17/19 09:00 O2 Sat by Pulse Oximetry (%) 97 02/17/19 09:00 Constitutional: Yes: No Distress, Calm Eyes: Yes: Conjunctiva Clear HENT: Yes: Atraumatic Cardiovascular: Yes: Regular Rate and Rhythm Respiratory: Yes: Regular, CTA Bilaterally Gastrointestinal: Yes: Normal Bowel Sounds, Soft Musculoskeletal: Yes: Muscle Weakness Extremities: Yes: Other (L arm in sling) Edema: No Neurological: Yes: Alert, Oriented Psychiatric: Yes: Alert, Oriented Labs: CBC, BMP 02/17/19 06:50 02/17/19 06:50 INR, PTT INR 1.06 (0.83-1.09) 02/16/19 07:28 Problem List - Problems (1) Fall Assessment/Plan: -PT -fall precautions Code(s): W19.XXXA - UNSPECIFIED FALL, INITIAL ENCOUNTER (2) HTN (hypertension) Assessment/Plan: -Diovan -low Na diet Code(s): I10 - ESSENTIAL (PRIMARY) HYPERTENSION (3) Hyponatremia Assessment/Plan: -Na 129 -renal on board -monitor Na level daily Code(s): E87.1 - HYPO-OSMOLALITY AND HYPONATREMIA (4) Olecranon fracture Assessment/Plan: -ortho on board -L arm in sling -pain control -POD#1 left olecranon ORIF -incentive spirometer -dvt ppx -Elbow xray on admission shows displaced olecranon fracture Code(s): S52.023A - DISP FX OF OLECRAN PRO W/O INTARTIC EXTN UNSP ULNA, INIT (5) Pubic ramus fracture Assessment/Plan: -PT -pain control -Pelvic Xray shows acute fracture left superior pubic ramus -dvt ppx Code(s): S32.599A - OTH FRACTURE OF UNSP PUBIS, INIT ENCNTR FOR CLOSED FRACTURE Assessment/Plan see problem list dvt ppx will need SNF for rehab when discharged
--- NOTE | 2019-02-17 12:55 | PN ---
Progress Note (short form) - Note Progress Note: PULMONARY s/p L elbow ORIF. Still some pain with deep inspiration from her ribs. Vital Signs Period Temp Pulse Resp BP Sys/Barton Pulse Ox Last 24 Hr 97.5 F-99.3 F 87-106 12-20 126-177/60-85 97-100 Gen: NAD in chair Heart: RRR Lung: decreased breath sounds at the bases Abd: soft, nontender Ext: no edema CBC, BMP 02/17/19 06:50 02/17/19 06:50 Active Medications Acetaminophen (Tylenol -) 650 mg PO Q6H PRN PRN Reason: Fever Or Pain Acetaminophen (Ofirmev Injection -) 750 mg IVPB Q6H PRN PRN Reason: PAIN OR FEVER Aspirin (Asa -) 325 mg PO DAILY [facility] Last Admin: 02/17/19 10:00 Dose: 325 mg Famotidine/Sodium Chloride (Pepcid 20 Mg Premixed Ivpb -) 20 mg in 50 mls @ 100 mls/hr IVPB BID [facility] Last Admin: 02/17/19 10:01 Dose: 100 mls/hr Sodium Chloride (Normal Saline -) 1,000 mls @ 40 mls/hr IV ASDIR [facility] Last Admin: 02/17/19 10:00 Dose: 40 mls/hr Ondansetron HCl (Zofran Injection) 4 mg IVPUSH Q6H PRN PRN Reason: NAUSEA AND/OR VOMITING Last Admin: 02/16/19 18:30 Dose: 4 mg Tramadol HCl (Ultram -) 50 mg PO Q6H PRN PRN Reason: PAIN LEVEL 6-10 Valsartan (Diovan -) 160 mg PO DAILY [facility] Last Admin: 02/17/19 10:00 Dose: 160 mg A/P s/p Fall Pubic Ramus Fracture L Olecranon Fracture s/p ORIF HTN - pain control - incentive spirometry - rehab/PT - DVT prophylaxis
--- NOTE | 2019-02-17 13:57 | PN ---
Progress Note, Physician History of Present Illness: Pt seen and examined at bedside. She is awake and alert. She was not on a thiazide as outpt. - Current Medication List Current Medications: Active Medications Acetaminophen (Tylenol -) 650 mg PO Q6H PRN PRN Reason: Fever Or Pain Acetaminophen (Ofirmev Injection -) 750 mg IVPB Q6H PRN PRN Reason: PAIN OR FEVER Aspirin (Asa -) 325 mg PO DAILY [facility] Last Admin: 02/17/19 10:00 Dose: 325 mg Famotidine/Sodium Chloride (Pepcid 20 Mg Premixed Ivpb -) 20 mg in 50 mls @ 100 mls/hr IVPB BID [facility] Last Admin: 02/17/19 10:01 Dose: 100 mls/hr Sodium Chloride (Normal Saline -) 1,000 mls @ 40 mls/hr IV ASDIR [facility] Last Admin: 02/17/19 10:00 Dose: 40 mls/hr Ondansetron HCl (Zofran Injection) 4 mg IVPUSH Q6H PRN PRN Reason: NAUSEA AND/OR VOMITING Last Admin: 02/16/19 18:30 Dose: 4 mg Tramadol HCl (Ultram -) 50 mg PO Q6H PRN PRN Reason: PAIN LEVEL 6-10 Valsartan (Diovan -) 160 mg PO DAILY [facility] Last Admin: 02/17/19 10:00 Dose: 160 mg - Objective Vital Signs: Vital Signs Temperature 97.8 F 02/17/19 09:00 Pulse Rate 106 H 02/17/19 09:00 Respiratory Rate 15 02/17/19 09:00 Blood Pressure 126/60 02/17/19 09:00 O2 Sat by Pulse Oximetry (%) 97 02/17/19 09:00 Constitutional: Yes: Calm Eyes: Yes: Conjunctiva Clear HENT: Yes: Atraumatic Neck: Yes: Supple Cardiovascular: Yes: S1, S2 Respiratory: Yes: CTA Bilaterally Gastrointestinal: Yes: Soft Genitourinary: Yes: WNL Musculoskeletal: Yes: Other (hip pain) Edema: No Integumentary: Yes: WNL Neurological: Yes: Oriented Psychiatric: Yes: Oriented Labs: CBC, BMP 02/17/19 06:50 02/17/19 06:50 INR, PTT INR 1.06 (0.83-1.09) 02/16/19 07:28 Problem List - Problems (1) Adult idiopathic generalized osteoporosis Code(s): M81.8 - OTHER OSTEOPOROSIS WITHOUT CURRENT PATHOLOGICAL FRACTURE (2) Colon cancer Code(s): C18.9 - MALIGNANT NEOPLASM OF COLON, UNSPECIFIED (3) Fall Code(s): W19.XXXA - UNSPECIFIED FALL, INITIAL ENCOUNTER (4) HTN (hypertension) Code(s): I10 - ESSENTIAL (PRIMARY) HYPERTENSION (5) Hyponatremia Code(s): E87.1 - HYPO-OSMOLALITY AND HYPONATREMIA Assessment/Plan Current Medications Generic Name Dose Route Start Last Admin Trade Name Freq PRN Reason Stop Dose Admin Acetaminophen 650 mg 02/16/19 17:30 Tylenol - PO Q6H PRN Fever Or Pain Acetaminophen 750 mg 02/16/19 17:30 Ofirmev Injection - IVPB Q6H PRN PAIN OR FEVER Aspirin 325 mg 02/17/19 10:00 02/17/19 10:00 Asa - PO 325 mg DAILY STEFAN Administration Famotidine/Sodium Chloride 20 mg in 50 mls @ 100 mls/hr 02/16/19 22:00 10:01 Pepcid 20 Mg Premixed Ivpb - IVPB 100 mls/hr BID STEFAN Administration Sodium Chloride 1,000 mls @ 40 mls/hr 02/16/19 21:58 02/17/19 10:00 Normal Saline - IV 40 mls/hr ASDIR STEFAN Administration Ondansetron HCl 4 mg 02/16/19 17:30 02/16/19 18:30 Zofran Injection IVPUSH 4 mg Q6H PRN Administration NAUSEA AND/OR VOMITING Tramadol HCl 50 mg 02/16/19 17:30 Ultram - PO Q6H PRN PAIN LEVEL 6-10 Valsartan 160 mg 02/17/19 10:00 02/17/19 10:00 Diovan - PO 160 mg DAILY STEFAN Administration Impression 1. Hyponatremia 2. s/p fall 3. htn 4. left olecranon fracture 5. hx of colon cancer Plan - sodium is improving - repeat urine studies shows lower osm - decrease fluids - restrict free water - follow cortisol - tsh normal - will follow Dr Ornelas
[2019-02-17 14:30] VITALS: BMI 19.5
--- NOTE | 2019-02-17 15:41 | PN ---
Progress Note (short form) - Note Progress Note: Anesthesiology Post-op POD#1 s/p Left elbow ORIF under supraclavicular block and GA. Pt. is doing well today. She states that she has some pain as block is resolving but better with meds and is resting comfortably in bed. Her son in at the bedside and inquired whether post-op confusion was expected. I did d/w him that this is not uncommon in this age group. She is much improved today and she also states that she feels better. VSS. No other issues. 88 y.o. woman with stable post-operative course. Continue management per primary team.
[2019-02-17] MEDS: SODIUM CHLORIDE 1,000 ML IV SCH (17:01)
[2019-02-18 08:55] LABS: HEMATOCRIT 31.2 % (32.4-45.2); HEMOGLOBIN 10.7 GM/dL (10.7-15.3); MCH 31.9 pg (25.7-33.7); MCHC 34.4 g/dl (32.0-36.0); MEAN CELL VOLUME 92.9 fl (80-96); PLATELET COUNT 206 K/MM3 (134-434); RBC 3.35 M/mm3 (3.60-5.2); WHITE BLOOD COUNT 8.3 K/mm3 (4.0-10.0)
[2019-02-18 09:23] LABS: ALBUMIN 3.7 g/dl (3.4-5.0); BILIRUBIN,TOTAL 0.9 mg/dL (0.2-1); BLOOD UREA NITROGEN 7.6 mg/dL (7-18); CALCIUM 8.5 mg/dL (8.5-10.1); CREATININE 0.4 mg/dL (0.55-1.3); POTASSIUM 3.8 mmol/L (3.5-5.1); TOT PROT 6.4 g/dl (6.4-8.2)
[2019-02-18] MEDS: ASPIRIN 325 MG TABLET PO SCH (09:28)
[2019-02-18] MEDS: VALSARTAN 160 MG TABLET (UD) PO SCH (09:28)
--- NOTE | 2019-02-18 09:36 | PN ---
Progress Note (short form) - Note Progress Note: Ortho Pt seen and examined s/p left olecranon orif pod #2, left pelvic fx Selected Entries 02/17/19 22:00 Temperature 98.6 F Pulse Rate 97 H Respiratory 18 Rate Blood Pressure 156/80 splint intact, nvi a/p maintain splint NWB LUE PT for pelvic fx wbat LLE pain control d/c planning
[2019-02-18 11:28] VITALS: BP 160/74; PULSE 99; TEMP 98.4
[2019-02-18] MEDS: FAMOTIDINE 20 MG/50 ML IVPB 20 MG/50 ML MG IVPB SCH (14:05)
[2019-02-18] MEDS: SODIUM CHLORIDE 1,000 ML IV SCH (14:05)
--- NOTE | 2019-02-18 14:06 | DS ---
Physical Examination Vital Signs: Vital Signs Temperature 98.4 F 02/18/19 09:00 Pulse Rate 99 H 02/18/19 09:00 Respiratory Rate 18 02/18/19 09:00 Blood Pressure 160/74 02/18/19 09:00 O2 Sat by Pulse Oximetry (%) 97 02/18/19 09:00 Constitutional: Yes: No Distress, Calm Eyes: Yes: Conjunctiva Clear HENT: Yes: Atraumatic Cardiovascular: Yes: Regular Rate and Rhythm Respiratory: Yes: Regular, CTA Bilaterally Gastrointestinal: Yes: Normal Bowel Sounds, Soft Musculoskeletal: Yes: Muscle Weakness Extremities: Yes: Other (L arm sling) Edema: No Neurological: Yes: Alert Psychiatric: Yes: Alert Labs: CBC, BMP 02/18/19 08:29 02/18/19 08:29 Discharge Summary Reason For Visit: FX OF PUBIC RAMUS,FX OF OLECRANON PROCESS OF ULNA Current Active Problems Adult idiopathic generalized osteoporosis (Acute) Age related osteoporosis (Acute) Colon cancer (Acute) Fall (Acute) HTN (hypertension) (Acute) History of colon resection (Acute) History of colostomy reversal (Acute) Hyponatremia (Acute) Olecranon fracture (Acute) Prophylactic measure (Acute) Pubic ramus fracture (Acute) Hospital Course: Patient is an 88 y/o female with past medical history of HTN, Osteoperosis, remote Colon CA s/p resection, colostomy, and reversal. Patient presents to ER after mechanical fall in parking lot. She had pain in L elbow and L side rib. Xrays show fracture to L olecranon and pubis ramus. Patient underwent L olecranon ORIF. Microbiology 02/17/19 04:00 Urine - Urine Clean Catch Urine Culture - Final NO GROWTH OBTAINED 02/16/19 09:20 Blood - Peripheral Venous Blood Culture - Preliminary NO GROWTH OBTAINED AFTER 48 HOURS, INCUBATION TO CONTINUE FOR 3 DAYS. 02/16/19 09:10 Blood - Peripheral Venous Blood Culture - Preliminary NO GROWTH OBTAINED AFTER 48 HOURS, INCUBATION TO CONTINUE FOR 3 DAYS. Laboratory Tests 02/15/19 02/15/19 02/15/19 16:50 16:50 16:50 WBC 13.2 H RBC 3.78 Hgb 12.0 Hct 35.2 MCV 93.2 MCH 31.9 MCHC 34.2 RDW 12.9 Plt Count 215 MPV 8.3 Absolute Neuts (auto) 11.4 H Neutrophils % 86.7 H Lymphocytes % 6.8 L Monocytes % 6.3 Eosinophils % 0.0 Basophils % 0.2 Nucleated RBC % 0 PT with INR 12.50 INR 1.06 PTT (Actin FS) 28.4 Sodium 130 L Potassium 3.9 Chloride 94 L Carbon Dioxide 28 Anion Gap 8 BUN 7.2 Creatinine 0.6 Est GFR (CKD-EPI)AfAm 95.66 Est GFR (CKD-EPI)NonAf 82.53 Random Glucose 124 H Serum Osmolality Calcium 9.3 Magnesium Total Bilirubin 0.7 AST 21 ALT 23 Alkaline Phosphatase 55 Creatine Kinase Troponin I Total Protein 6.8 Albumin 4.3 TSH Urine Osmolality Ur Random Creatinine Ur Random Sodium Ur Random Potassium Ur Random Chloride 02/16/19 02/16/19 02/16/19 07:28 07:28 07:28 WBC 7.0 RBC 3.73 Hgb 11.9 Hct 35.0 MCV 93.9 MCH 31.8 MCHC 33.9 RDW 13.2 Plt Count 214 MPV 8.6 Absolute Neuts (auto) 5.4 Neutrophils % 77.7 Lymphocytes % 13.1 D Monocytes % 9.0 Eosinophils % 0.1 D Basophils % 0.1 Nucleated RBC % 0 PT with INR 12.50 INR 1.06 PTT (Actin FS) Sodium 125 L Potassium 4.2 Chloride 88 L Carbon Dioxide 26 Anion Gap 11 BUN 6.8 L Creatinine 0.7 Est GFR (CKD-EPI)AfAm 90.93 Est GFR (CKD-EPI)NonAf 78.45 Random Glucose 113 H Serum Osmolality Calcium 9.2 Magnesium 2.1 Total Bilirubin 1.0 AST 26 ALT 22 Alkaline Phosphatase 64 Creatine Kinase Troponin I Total Protein 7.2 Albumin 4.3 TSH Urine Osmolality Ur Random Creatinine Ur Random Sodium Ur Random Potassium Ur Random Chloride 02/16/19 02/16/19 02/16/19 09:35 09:35 09:35 WBC RBC Hgb Hct MCV MCH MCHC RDW Plt Count MPV Absolute Neuts (auto) Neutrophils % Lymphocytes % Monocytes % Eosinophils % Basophils % Nucleated RBC % PT with INR INR PTT (Actin FS) Sodium Potassium Chloride Carbon Dioxide Anion Gap BUN Creatinine Est GFR (CKD-EPI)AfAm Est GFR (CKD-EPI)NonAf Random Glucose Serum Osmolality Calcium Magnesium Total Bilirubin AST ALT Alkaline Phosphatase Creatine Kinase Troponin I Total Protein Albumin TSH Urine Osmolality 348 Ur Random Creatinine Cancelled 65.0 Ur Random Sodium 40 Ur Random Potassium Ur Random Chloride 02/16/19 02/17/19 02/17/19 18:40 04:00 04:00 WBC RBC Hgb Hct MCV MCH MCHC RDW Plt Count MPV Absolute Neuts (auto) Neutrophils % Lymphocytes % Monocytes % Eosinophils % Basophils % Nucleated RBC % PT with INR INR PTT (Actin FS) Sodium 127 L Potassium 4.0 Chloride 93 L Carbon Dioxide 25 Anion Gap 9 BUN 6.0 L Creatinine 0.5 L Est GFR (CKD-EPI)AfAm 101.57 Est GFR (CKD-EPI)NonAf 87.64 Random Glucose 149 H Serum Osmolality 264 L Calcium 8.1 L Magnesium Total Bilirubin AST ALT Alkaline Phosphatase Creatine Kinase 96 Troponin I < 0.02 Total Protein Albumin TSH Urine Osmolality 227 L Ur Random Creatinine Ur Random Sodium 43 Ur Random Potassium 24.0 L Ur Random Chloride 40 L 02/17/19 02/17/19 02/18/19 06:50 06:50 08:29 WBC 7.7 RBC 3.48 L Hgb 11.1 Hct 32.5 MCV 93.4 MCH 32.0 MCHC 34.3 RDW 13.0 Plt Count 191 MPV 8.2 Absolute Neuts (auto) Neutrophils % Lymphocytes % Monocytes % Eosinophils % Basophils % Nucleated RBC % PT with INR INR PTT (Actin FS) Sodium 129 L 129 L Potassium 4.6 3.8 Chloride 94 L 94 L Carbon Dioxide 26 28 Anion Gap 9 7 L BUN 6.1 L 7.6 Creatinine 0.6 0.4 L Est GFR (CKD-EPI)AfAm 95.66 109.31 Est GFR (CKD-EPI)NonAf 82.53 94.31 Random Glucose 118 H 119 H Serum Osmolality Calcium 8.9 8.5 Magnesium 2.2 Total Bilirubin 0.9 0.9 AST 22 25 ALT 19 19 Alkaline Phosphatase 53 53 Creatine Kinase Troponin I Total Protein 6.5 6.4 Albumin 3.9 3.7 TSH 1.93 Urine Osmolality Ur Random Creatinine Ur Random Sodium Ur Random Potassium Ur Random Chloride 02/18/19 08:29 WBC 8.3 RBC 3.35 L Hgb 10.7 Hct 31.2 L MCV 92.9 MCH 31.9 MCHC 34.4 RDW 13.0 Plt Count 206 MPV 8.0 Absolute Neuts (auto) Neutrophils % Lymphocytes % Monocytes % Eosinophils % Basophils % Nucleated RBC % PT with INR INR PTT (Actin FS) Sodium Potassium Chloride Carbon Dioxide Anion Gap BUN Creatinine Est GFR (CKD-EPI)AfAm Est GFR (CKD-EPI)NonAf Random Glucose Serum Osmolality Calcium Magnesium Total Bilirubin AST ALT Alkaline Phosphatase Creatine Kinase Troponin I Total Protein Albumin TSH Urine Osmolality Ur Random Creatinine Ur Random Sodium Ur Random Potassium Ur Random Chloride Active Medications Acetaminophen (Tylenol -) 650 mg PO Q6H PRN PRN Reason: Fever Or Pain Last Admin: 02/17/19 16:58 Dose: 650 mg Acetaminophen (Ofirmev Injection -) 750 mg IVPB Q6H PRN PRN Reason: PAIN OR FEVER Aspirin (Asa -) 325 mg PO DAILY [facility] Last Admin: 02/18/19 09:28 Dose: 325 mg Famotidine/Sodium Chloride (Pepcid 20 Mg Premixed Ivpb -) 20 mg in 50 mls @ 100 mls/hr IVPB BID [facility] Last Admin: 02/18/19 14:05 Dose: Not Given Sodium Chloride (Normal Saline -) 1,000 mls @ 30 mls/hr IV ASDIR [facility] Last Admin: 02/18/19 14:05 Dose: Not Given Ondansetron HCl (Zofran Injection) 4 mg IVPUSH Q6H PRN PRN Reason: NAUSEA AND/OR VOMITING Last Admin: 02/16/19 18:30 Dose: 4 mg Tramadol HCl (Ultram -) 50 mg PO Q6H PRN PRN Reason: PAIN LEVEL 6-10 Last Admin: 02/17/19 21:16 Dose: 50 mg Valsartan (Diovan -) 160 mg PO DAILY [facility] Last Admin: 02/18/19 09:28 Dose: 160 mg Condition: Stable - Instructions Diet, Activity, Other Instructions: Follow up with PMD in 1 week follow up with [employer] Dr Ornelas monitor Sodium level twice a week continue with medication regimen as prescribed return to ER if develop severe pain, respiratory distress, chest pain, fever Referrals: Herman Lepe PA [[facility]] - Disposition: [facility] - Home Medications Comprehensive Discharge Medication List: Ambulatory Orders Micardis Hct 40-12.5 mg Tablet 40 mg PO DAILY 01/05/14 Cephalexin [Keflex] 500 mg PO BID #13 capsule 12/25/16 Tramadol HCl 50 mg PO Q6H #20 tablet MDD 200 mg 12/25/16 Acetaminophen [Tylenol .Regular Strength -] 650 mg PO Q6H PRN tablet 02/18/19 Sodium Chloride Tablet - 1 gm PO BID #60 tablet 02/18/19 Valsartan [Diovan] 160 mg PO DAILY tablet 02/18/19
--- NOTE | 2019-02-18 14:35 | PN ---
Progress Note, Physician History of Present Illness: Pt seen and examined at bedside. She is awake and alert. She denies shortness of breath. - Current Medication List Current Medications: Active Medications Acetaminophen (Tylenol -) 650 mg PO Q6H PRN PRN Reason: Fever Or Pain Last Admin: 02/17/19 16:58 Dose: 650 mg Acetaminophen (Ofirmev Injection -) 750 mg IVPB Q6H PRN PRN Reason: PAIN OR FEVER Aspirin (Asa -) 325 mg PO DAILY [facility] Last Admin: 02/18/19 09:28 Dose: 325 mg Famotidine/Sodium Chloride (Pepcid 20 Mg Premixed Ivpb -) 20 mg in 50 mls @ 100 mls/hr IVPB BID [facility] Last Admin: 02/18/19 14:05 Dose: Not Given Sodium Chloride (Normal Saline -) 1,000 mls @ 30 mls/hr IV ASDIR [facility] Last Admin: 02/18/19 14:05 Dose: Not Given Ondansetron HCl (Zofran Injection) 4 mg IVPUSH Q6H PRN PRN Reason: NAUSEA AND/OR VOMITING Last Admin: 02/16/19 18:30 Dose: 4 mg Tramadol HCl (Ultram -) 50 mg PO Q6H PRN PRN Reason: PAIN LEVEL 6-10 Last Admin: 02/17/19 21:16 Dose: 50 mg Valsartan (Diovan -) 160 mg PO DAILY [facility] Last Admin: 02/18/19 09:28 Dose: 160 mg - Objective Vital Signs: Vital Signs Temperature 98.4 F 02/18/19 09:00 Pulse Rate 99 H 02/18/19 09:00 Respiratory Rate 18 02/18/19 09:00 Blood Pressure 160/74 02/18/19 09:00 O2 Sat by Pulse Oximetry (%) 97 02/18/19 09:00 Constitutional: Yes: Calm Eyes: Yes: Conjunctiva Clear HENT: Yes: Atraumatic Cardiovascular: Yes: S1, S2 Respiratory: Yes: CTA Bilaterally Gastrointestinal: Yes: Soft Genitourinary: Yes: WNL Musculoskeletal: Yes: Other (arm in sling) Edema: No Neurological: Yes: Oriented Psychiatric: Yes: Oriented Labs: CBC, BMP 02/18/19 08:29 02/18/19 08:29 INR, PTT INR 1.06 (0.83-1.09) 02/16/19 07:28 Problem List - Problems (1) Adult idiopathic generalized osteoporosis Code(s): M81.8 - OTHER OSTEOPOROSIS WITHOUT CURRENT PATHOLOGICAL FRACTURE (2) Colon cancer Code(s): C18.9 - MALIGNANT NEOPLASM OF COLON, UNSPECIFIED (3) Fall Code(s): W19.XXXA - UNSPECIFIED FALL, INITIAL ENCOUNTER (4) HTN (hypertension) Code(s): I10 - ESSENTIAL (PRIMARY) HYPERTENSION (5) Hyponatremia Code(s): E87.1 - HYPO-OSMOLALITY AND HYPONATREMIA Assessment/Plan Current Medications Generic Name Dose Route Start Last Admin Trade Name Freq PRN Reason Stop Dose Admin Acetaminophen 650 mg 02/16/19 17:30 02/17/19 16:58 Tylenol - PO 650 mg Q6H PRN Administration Fever Or Pain Acetaminophen 750 mg 02/16/19 17:30 Ofirmev Injection - IVPB Q6H PRN PAIN OR FEVER Aspirin 325 mg 02/17/19 10:00 02/18/19 09:28 Asa - PO 325 mg DAILY [facility] Administration Famotidine/Sodium Chloride 20 mg in 50 mls @ 100 mls/hr 02/16/19 22:00 14:05 Pepcid 20 Mg Premixed Ivpb - IVPB Not Given BID [facility] Sodium Chloride 1,000 mls @ 30 mls/hr 02/17/19 13:57 02/18/19 14:05 Normal Saline - IV Not Given ASDIR [facility]AN Ondansetron HCl 4 mg 02/16/19 17:30 02/16/19 18:30 Zofran Injection IVPUSH 4 mg Q6H PRN Administration NAUSEA AND/OR VOMITING Tramadol HCl 50 mg 02/16/19 17:30 02/17/19 21:16 Ultram - PO 50 mg Q6H PRN Administration PAIN LEVEL 6-10 Valsartan 160 mg 02/17/19 10:00 02/18/19 09:28 Diovan - PO 160 mg DAILY [facility] Administration Laboratory Tests 02/17/19 02/17/19 02/17/19 04:00 06:50 06:50 TSH 1.93 Cortisol AM Sample Pending Urine Osmolality 227 L Impression 1. Hyponatremia 2. s/p fall 3. htn 4. left olecranon fracture 5. hx of colon cancer Plan - d/c fluids - restrict free water - salt tab trial - will need to check sodium in rehab - she remains at risk to fall - discussed with pt and medical team Dr Ornelas
== END 2019-02-18 16:37 | DRG 511 ==
LOC: JER 11:19 → JERBED 17:08 → J6S 18:34
PROVIDERS: ADMIT Family Medicine; ATTEND Family Medicine
PROC: 0PSL04Z Reposition Left Ulna with Internal Fixation Device, Open Approach (ICD-10-PCS; principal; 2019-02-16 12:00)
DX: S52.022A Displaced fracture of olecranon process without intraarticular extension of left ulna, initial encounter for closed fracture (principal); S32.599A Other specified fracture of unspecified pubis, initial encounter for closed fracture; E87.1 Hypo-osmolality and hyponatremia; M81.8 Other osteoporosis without current pathological fracture; I10 Essential (primary) hypertension; R07.81 Pleurodynia; R10.32 Left lower quadrant pain; W18.39XA Other fall on same level, initial encounter; Y92.89 Other specified places as the place of occurrence of the external cause; Z85.038 Personal history of other malignant neoplasm of large intestine; Z98.890 Other specified postprocedural states; Z90.49 Acquired absence of other specified parts of digestive tract
CPT/HCPCS: 36415; 70450-TC; 71045-TC-FY; 72125-TC; 72170-TC-FY; 72192-TC; 73030-TC-LT-FY; 73060-TC-LT-FY; 73070-TC-LT-FY; 73110-TC-LT-FY; 76000-TC-FY; 80048; 80053; 82436; 82533; 82550; 82565; 83735; 83930; 83935; 84133; 84300; 84443; 84484; 85025; 85027; 85610; 85730; 87040; 87086; 93005; 93010; 94760; 97116-GP; 97162-GP; 99284-25; J1644; J7030

== ENCOUNTER 2020-11-05 15:07 | Inpatient (IN) | payer OTHER, BC ==
[2020-11-05 15:53] VITALS: BMI 16.5
[2020-11-05 17:02] LABS: BASO % 0.7 % (0-2.0); EOS % 1.1 % (0-4.5); HEMATOCRIT 34.4 % (32.4-45.2); HEMOGLOBIN 12.2 GM/dL (10.7-15.3); LYMPH % 24.4 % (8-40); MCH 33.3 pg (25.7-33.7); MCHC 35.5 g/dl (32.0-36.0); MEAN CELL VOLUME 93.7 fl (80-96); MONO % 12.6 % (3.8-10.2); NEUT % 61.2 % (42.8-82.8); PLATELET COUNT 242 K/MM3 (134-434); RBC 3.67 M/mm3 (3.60-5.2); RDW 13.4 % (11.6-15.6)
[2020-11-05 17:12] LABS: CHLORIDE 88 mmol/L (98-107); SODIUM 123 mmol/L (136-145)
[2020-11-05 17:14] LABS: CALCIUM 8.7 mg/dL (8.5-10.1)
[2020-11-05 17:15] LABS: ANION GAP 7 MMOL/L (8-16); BLOOD UREA NITROGEN 9.1 mg/dL (7-18); CO2 28 mmol/L (21-32); GLUCOSE,RANDOM 106 mg/dL (74-106)
[2020-11-05 17:17] LABS: CREATININE 0.5 mg/dL (0.55-1.3); SGOT/AST 22 U/L (15-37); SGPT/ALT 25 U/L (13-61)
[2020-11-05 17:20] LABS: BILIRUBIN,TOTAL 0.6 mg/dL (0.2-1); INR 1.04 (0.83-1.09); PROTHROMBIN TIME (PATIENT) 12.6 SEC (9.7-13.0); TOT PROT 6.6 g/dl (6.4-8.2)
[2020-11-05 17:21] LABS: ALK PHOS 42 U/L (45-117)
[2020-11-05 17:23] LABS: ACTIVATED PTT 24.3 SECONDS (25.2-36.5)
[2020-11-05] MEDS ORDERED: SODIUM CHLORIDE 1,000 ML IV SCH ×2 (17:45→23:00)
[2020-11-05 21:51] LABS: CHLORIDE 88 mmol/L (98-107); SODIUM 124 mmol/L (136-145)
[2020-11-05 21:52] LABS: CALCIUM 8.2 mg/dL (8.5-10.1)
[2020-11-05 21:54] LABS: ANION GAP 8 MMOL/L (8-16); BLOOD UREA NITROGEN 8.6 mg/dL (7-18); CO2 27 mmol/L (21-32)
[2020-11-05 21:55] LABS: GLUCOSE,RANDOM 98 mg/dL (74-106)
[2020-11-05 21:57] LABS: CREATININE 0.4 mg/dL (0.55-1.3)
[2020-11-06 01:37] LABS: EPI CELLS 4 /uL (0-25.1); HYALINE CASTS 1 /uL (0-3.1); URINE APPEARANCE CLEAR; URINE BACTERIA >9,000 /uL (0-1359); URINE BILIRUBIN NEGATIVE (NEGATIVE); URINE COLOR YELLOW; URINE GLUCOSE (UA) NEGATIVE (NEGATIVE); URINE KETONE NEGATIVE (NEGATIVE); URINE LEUK ESTERASE 3+ (NEGATIVE); URINE NITRITE NEGATIVE (NEGATIVE); URINE PROTEIN NEGATIVE (NEGATIVE); URINE RBC 5 /uL (0-23.9); URINE UROBILINOGEN 0.2 mg/dL (0.2-1.0); URINE WBC 395 /uL (0-25.8)
[2020-11-06 03:28] LABS: HEMATOCRIT 35.1 % (32.4-45.2); HEMOGLOBIN 12.2 GM/dL (10.7-15.3); MCH 33.2 pg (25.7-33.7); MCHC 34.7 g/dl (32.0-36.0); MEAN CELL VOLUME 95.7 fl (80-96); PLATELET COUNT 214 K/MM3 (134-434); RBC 3.67 M/mm3 (3.60-5.2); RDW 13.6 % (11.6-15.6); WHITE BLOOD COUNT 5.6 K/mm3 (4.0-10.0)
[2020-11-06 03:48] LABS: BLOOD UREA NITROGEN 7.4 mg/dL (7-18); CALCIUM 8.3 mg/dL (8.5-10.1)
[2020-11-06 03:49] LABS: ALBUMIN 3.8 g/dl (3.4-5.0); BLOOD UREA NITROGEN 8.4 mg/dL (7-18); CALCIUM 8.3 mg/dL (8.5-10.1); MAGNESIUM 1.9 mg/dL (1.8-2.4)
[2020-11-06 03:51] LABS: CREATININE 0.5 mg/dL (0.55-1.3); PHOSPHOROUS 3.6 mg/dL (2.5-4.9)
[2020-11-06 03:52] LABS: BILIRUBIN,TOTAL 0.8 mg/dL (0.2-1); CREATININE 0.5 mg/dL (0.55-1.3); TOT PROT 6.1 g/dl (6.4-8.2)
[2020-11-06 11:30] LABS: BLOOD UREA NITROGEN 6.5 mg/dL (7-18)
[2020-11-06 11:34] LABS: CREATININE 0.4 mg/dL (0.55-1.3)
[2020-11-06] MEDS ORDERED: ACETAMINOPHEN 325 MG TABLET (FP) PO PRN (11:44)
[2020-11-06] MEDS ORDERED: PT OWN MED DRAWER 7, Y5N ONE (12:01)
[2020-11-06] MEDS: ENOXAPARIN NA (PORCINE) 60 MG/0.6 ML DISP.SYRIN SQ SCH ×2 (12:33→21:38)
[2020-11-06] MEDS: AMIODARONE HCL 200 MG TABLET PO SCH ×2 (12:33→21:38)
[2020-11-06 15:55] LABS: CALCIUM 8.2 mg/dL (8.5-10.1)
[2020-11-06 15:56] LABS: BLOOD UREA NITROGEN 8.1 mg/dL (7-18)
[2020-11-06 15:59] LABS: CREATININE 0.5 mg/dL (0.55-1.3)
[2020-11-06] MEDS ORDERED: SODIUM CHLORIDE 1,000 ML IV SCH (16:24)
[2020-11-06 21:55] LABS: CALCIUM 7.8 mg/dL (8.5-10.1)
[2020-11-06 21:57] LABS: BLOOD UREA NITROGEN 10.4 mg/dL (7-18)
[2020-11-06 21:59] LABS: CREATININE 0.5 mg/dL (0.55-1.3)
[2020-11-07] MEDS ORDERED: MELATONIN 1 MG TABLET PO ONE (02:40)
[2020-11-07 08:05] LABS: ALBUMIN 3.5 g/dl (3.4-5.0); CALCIUM 7.9 mg/dL (8.5-10.1)
[2020-11-07 08:07] LABS: BLOOD UREA NITROGEN 6.8 mg/dL (7-18)
[2020-11-07 08:10] LABS: BILIRUBIN,TOTAL 0.9 mg/dL (0.2-1); CREATININE 0.3 mg/dL (0.55-1.3); TOT PROT 5.8 g/dl (6.4-8.2)
[2020-11-07] MEDS: AMIODARONE HCL 200 MG TABLET PO SCH ×2 (10:16→21:17)
[2020-11-07] MEDS: ENOXAPARIN NA (PORCINE) 60 MG/0.6 ML DISP.SYRIN SQ SCH ×2 (10:16→21:17)
[2020-11-07] MEDS: SODIUM CHLORIDE 1,000 ML IV SCH (21:14)
[2020-11-08] MEDS: AMIODARONE HCL 200 MG TABLET PO SCH ×2 (09:00→22:22)
[2020-11-08] MEDS: ENOXAPARIN NA (PORCINE) 60 MG/0.6 ML DISP.SYRIN SQ SCH ×2 (09:01→22:22)
[2020-11-08] MEDS: SODIUM CHLORIDE 1,000 ML IV SCH (09:02)
[2020-11-08] MEDS ORDERED: DEXTROSE 5%-WATER - 50 ML IVPB ONE (11:29)
[2020-11-08] MEDS ORDERED: cefTRIAXone SODIUM 1 GM VIAL ONE (11:29)
[2020-11-08] MEDS: CEFTRIAXONE 1 GM in DEXTROSE 5%-WATER - 50 ML IVPB SCH (11:31)
[2020-11-08 14:04] LABS: HEMATOCRIT 35.1 % (32.4-45.2); HEMOGLOBIN 12.2 GM/dL (10.7-15.3); MCH 33.1 pg (25.7-33.7); MCHC 34.7 g/dl (32.0-36.0); MEAN CELL VOLUME 95.4 fl (80-96); MEAN PLT VOLUME 7.6 fl (7.5-11.1); PLATELET COUNT 270 K/MM3 (134-434); RBC 3.68 M/mm3 (3.60-5.2); RDW 13.6 % (11.6-15.6); WHITE BLOOD COUNT 4.7 K/mm3 (4.0-10.0)
[2020-11-08 14:25] LABS: ALBUMIN 3.6 g/dl (3.4-5.0); BLOOD UREA NITROGEN 7.9 mg/dL (7-18); CALCIUM 7.8 mg/dL (8.5-10.1)
[2020-11-08 14:26] LABS: MAGNESIUM 1.7 mg/dL (1.8-2.4)
[2020-11-08 14:28] LABS: CREATININE 0.4 mg/dL (0.55-1.3)
[2020-11-08 14:30] LABS: BILIRUBIN,TOTAL 0.5 mg/dL (0.2-1)
[2020-11-08] MEDS ORDERED: MAGNESIUM OXIDE 400 MG TABLET (FP) PO ONE (16:24)
[2020-11-08] MEDS ORDERED: POTASSIUM CHLORIDE ORAL LIQUID 20 MEQ/15 ML PO ONE (16:24)
[2020-11-08] MEDS: SODIUM CHLORIDE 1 GM TABLET PO SCH ×2 (18:57→22:22)
[2020-11-08] MEDS ORDERED: PT OWN MED DRAWER 7, Y5N ONE ×2 (19:18→22:15)
[2020-11-09 07:54] LABS: CALCIUM 7.6 mg/dL (8.5-10.1)
[2020-11-09 07:55] LABS: ALBUMIN 3.5 g/dl (3.4-5.0); BLOOD UREA NITROGEN 6.5 mg/dL (7-18); MAGNESIUM 1.9 mg/dL (1.8-2.4)
[2020-11-09 07:58] LABS: CREATININE 0.5 mg/dL (0.55-1.3)
[2020-11-09 07:59] LABS: BILIRUBIN,TOTAL 0.6 mg/dL (0.2-1)
[2020-11-09] MEDS ORDERED: PT OWN MED DRAWER 7, Y5N ONE ×4 (08:25→21:22)
[2020-11-09] MEDS ORDERED: cefTRIAXone SODIUM 1 GM VIAL ONE (08:40)
[2020-11-09] MEDS ORDERED: DEXTROSE 5%-WATER - 50 ML IVPB ONE (08:40)
[2020-11-09] MEDS: CEFTRIAXONE 1 GM in DEXTROSE 5%-WATER - 50 ML IVPB SCH (09:10)
[2020-11-09] MEDS: SODIUM CHLORIDE 1 GM TABLET PO SCH ×3 (09:24→22:09)
[2020-11-09] MEDS: AMIODARONE HCL 200 MG TABLET PO SCH ×2 (09:25→22:08)
[2020-11-09] MEDS: ENOXAPARIN NA (PORCINE) 60 MG/0.6 ML DISP.SYRIN SQ SCH ×2 (09:25→22:09)
[2020-11-09 23:51] VITALS: BP 147/61; PULSE 74; TEMP 97.6
== END 2020-11-10 00:15 | DRG 641 ==
LOC: JER 15:07 → JERBED 17:56 → J4S 11-06 01:35
PROVIDERS: ADMIT Hospitalist; ATTEND Family Medicine
DX: E87.1 Hypo-osmolality and hyponatremia (principal); R64 Cachexia; Z68.1 Body mass index [BMI] 19.9 or less, adult; I47.1 Supraventricular tachycardia; R55 Syncope and collapse; I10 Essential (primary) hypertension; I48.0 Paroxysmal atrial fibrillation; M81.8 Other osteoporosis without current pathological fracture; Z85.038 Personal history of other malignant neoplasm of large intestine
CPT/HCPCS: 36415; 70450-TC; 71045-TC-FY; 72125-TC; 80048; 80053; 81003; 82550; 82570; 83735; 83930; 83935; 84100; 84300; 84443; 84484; 85025; 85027; 85610; 85730; 87086; 87186; 93005; 93010; 93306-TC; 97116-GP; 97161-GP; 99285-25; C9803; U0003; U0005